=== PATIENT | male | born 1955 | race Caucasian/White ===

== ENCOUNTER 2017-04-27 12:35 | Emergency (ER) | payer MEDICARE, OTHER ==
[~2017-04-27] VITALS: Ht 172.7 cm; Wt 90.7 kg
[2017-04-27 12:35] VITALS: BP 152/83
[~2017-04-27 12:35] MED LIST: ACET-868 PO; ALBU8.5H4 IH; MAGN400O6 PO; MYLANTA PO
[2017-04-27] MEDS ORDERED: KETOROLAC TROMETHAMINE INJ 30 MG/ML VIAL ONE (13:24)
[2017-04-27] MEDS ORDERED: KETOROLAC TROMETHAMINE INJ 60 MG/2 ML VIAL IM ONE (13:30)
== END 2017-04-27 13:57 | disposition home or self-care (01) ==
LOC: ER 12:38
DX: M19.90 Unspecified osteoarthritis, unspecified site (principal); G47.00 Insomnia, unspecified; I10 Essential (primary) hypertension; Z88.0 Allergy status to penicillin
CPT/HCPCS: 99282; 99406; A4606; J1885; Z7610